=== PATIENT | male | born 1995 | race Hispanic/Latino ===

== ENCOUNTER 2023-09-11 07:23 | Outpatient (CLI) | payer BC ==
[2023-09-11] MEDS ORDERED: Iopamidol 300 61% 100 ML VIAL FS ONE (10:10)
== END 2023-09-11 07:24 | disposition home or self-care (01) ==
LOC: CSHCT 07:23
PROVIDERS: ATTEND Internal Medicine Hematology & Oncology
DX: C62.12 Malignant neoplasm of descended left testis (principal); C78.02 Secondary malignant neoplasm of left lung; C78.01 Secondary malignant neoplasm of right lung; C77.8 Secondary and unspecified malignant neoplasm of lymph nodes of multiple regions; K76.0 Fatty (change of) liver, not elsewhere classified; Z96.0 Presence of urogenital implants
CPT/HCPCS: 71260; 74177; Q9967

== ENCOUNTER 2023-10-01 08:27 | Outpatient (CLI) | payer BC | END 2023-10-01 08:28 | disposition home or self-care (01) | LOC: CSHMRI 08:27 | PROVIDERS: ATTEND Internal Medicine Hematology & Oncology | DX: C62.12 Malignant neoplasm of descended left testis (principal) | CPT/HCPCS: 70553 ==

== ENCOUNTER 2023-10-26 16:12 | Outpatient (CLI) | payer BC | END 2023-10-26 16:13 | disposition home or self-care (01) | LOC: CSHRAD 16:12 | PROVIDERS: ATTEND Internal Medicine Hematology & Oncology | DX: C62.12 Malignant neoplasm of descended left testis (principal); Z79.899 Other long term (current) drug therapy | CPT/HCPCS: 94010; 94726; 94729; 94760 ==